=== PATIENT | male | born 1980 | race Two or more races ===

== ENCOUNTER 2021-03-26 12:23 | Emergency (ER) | payer SELFPAY ==
[~2021-03-26] VITALS: Ht 172.7 cm; Wt 86.3 kg
[2021-03-26 12:31] VITALS: BP 135/89
[2021-03-26] MEDS ORDERED: LIDOCAINE 1% Multi-Dose 20 ML VIAL. ONE (12:52)
--- NOTE | 2021-03-26 13:20 | PHYS DOC ---
Past Medical History Past Surgical History: No Surgical History General Adult EDM: Chief Complaint: KNEE SWELLING HPI: HPI: Patient is a 40 year old male who presents with out pertinent past medical history presents with a week of right knee swelling. 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 He does typically use kneepads. Does not remember any specific trauma. He had a big swollen area just inferior to his patella. His whole leg swelled up and became red. He states that the swelling has actually improved but has not gone away. Denies any fevers, chills, nausea, vomiting or other systemic symptoms. He does have pain once he gets past 90 degrees with range of motion, but no pain with a lesser degree of range of motion at the knee. Review of Systems: Review of Systems: Constitutional: Denies fever or chills. [] Eyes: Denies change in visual acuity. [] HENT: Denies nasal congestion or sore throat. [] Respiratory: Denies cough or shortness of breath. [] Cardiovascular: Denies chest pain or edema. [] GI: Denies abdominal pain, nausea, vomiting, bloody stools or diarrhea. [] : Denies dysuria. [] Musculoskeletal: Right knee pain,. [] Integument: Right knee swelling and redness [] Neurologic: Denies headache, focal weakness or sensory changes. [] Endocrine: Denies polyuria or polydipsia. [] Lymphatic: Denies swollen glands. [] Psychiatric: Denies depression or anxiety. [] Heart Score: C/O Chest Pain: No Risk Factors: Risk Factors: DM, Current or recent (<one month) smoker, HTN, HLP, family history of CAD, obesity. Risk Scores: Score 0 - 3: 2.5% MACE over next 6 weeks - Discharge Home Score 4 - 6: 20.3% MACE over next 6 weeks - Admit for Clinical Observation Score 7 - 10: 72.7% MACE over next 6 weeks - Early Invasive Strategies Current Medications: Current Medications Medications (Trade) Dose Ordered Sig/Daphne Start Time Stop Time Status Last Admin Dose Admin Lidocaine HCl (Lidocaine 1% 20ml Vial) 20 ml STK-MED ONCE 03/26/21 12:52 03/26/21 12:53 DC Allergies: Allergies: Allergies Coded Allergies Type Severity Reaction Last Updated Verified No Known Drug Allergies 03/26/21 No Physical Exam: PE: Constitutional: Well developed, well nourished, no acute distress, non-toxic appearance. [] HENT: Normocephalic, atraumatic, bilateral external ears normal, oropharynx moist, no oral exudates, nose normal. [] Eyes: conjunctiva normal, no discharge. [] Neck: Normal range of motion, no tenderness, supple, no stridor. [] Cardiovascular:Heart rate regular rhythm, no murmur [] Lungs & Thorax: Bilateral breath sounds clear to auscultation [] Skin: Spreading erythema just inferior to the knee. Erythematous skin is slightly tender to the touch. It is warm to the touch as well.. [] Back: No tenderness, no CVA tenderness. [] Extremities: Right knee with a fluctuant warm, and erythematous area just inferior to the patella. Painless range of motion to 90 degrees, then begins to be painful. [] Neurologic: Alert and oriented X 3, normal motor function, normal sensory function, no focal deficits noted. [] Psychologic: Affect normal, judgement normal, mood normal. [] Current Patient Data: Vital Signs: Vital Signs Date Time Temp Pulse Resp B/P (MAP) Pulse Ox O2 Delivery O2 Flow Rate FiO2 03/26/21 12:31 98.3 95 18 135/89 (104) 98 Room Air 98.3 EKG: EKG: [] Radiology/Procedures: Radiology/Procedures: [id number] ultrasound shows a well-circumscribed fluid collection in the area of the prepatellar bursa. There is no evidence of knee effusion on [id number] ultrasound. [] Impression: Indication: Septic prepatellar bursitis Procedure: The patient was positioned appropriately. Local anesthesia with 1% lidocaine was injected with a wheal. 2 attempts at aspiration were completed. The second attempt was under active ultrasound guidance with ultimate success. 3 cc of purulent material where aspirated with an 18-gauge needle. The needle was removed and a bandage was applied. An Ronald wrap was applied over the bursa afterwards. The patient tolerated the procedure well. Complications: none. Course & Med Decision Making: Course & Med Decision Making Pertinent Labs and Imaging studies reviewed. 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 The bursa was aspirated and returned purulent material. We will send for cu lture. He is well-appearing and afebrile without symptoms of systemic infection. I feel that he can be safely managed as an outpatient. Will prescribe Augmentin. He does not currently have a PCP, I have referred him to call her PCP office to establish. I explained strict return precautions, the patient voiced understanding. [id number] Fidencio Disclaimer: Fidencio Disclaimer: This electronic medical record was generated, in whole or in part, using a voice recognition dictation system. Departure Departure Impression: Primary Impression: Septic prepatellar bursitis Disposition: HOME / SELF CARE / HOMELESS Condition: STABLE Referrals: NON,STAFF (PCP) Additional Instructions: You have what is called septic bursitis of your prepatellar bursa. This is an infection. We are treating you with an antibiotic, Augmentin, please take the entire prescription. If you develop fever, chills, vomiting, worsening pain and redness, or pain with minimal range of motion of your knee please return to the emergency department immediately for reevaluation. Since you do not have a PCP, please call the number for the [facility] at [phone]. Scripts Amoxicillin/Potassium Clav (AUGMENTIN [id number] TABLET) 1 Each Tablet 1 TAB PO BID for 10 Days, #20 TAB 0 Refills Prov: YUAN WOODS MD 03/26/21 YUAN WOODS MD Mar 26, 2021 13:20
[2021-03-26] MEDS ORDERED: AMOX1TAB61 PO (13:23)
[2021-03-26] MEDS ORDERED: LIDOCAINE 1% Multi-Dose 20 ML VIAL. INJ ONE (13:30)
[2021-03-26 14:33] LABS: BF COLOR RED; BF SOURCE SYNOVIAL
[2021-03-26 14:34] LABS: BF CLARITY TURBID
[2021-03-26 14:35] LABS: BF MON % 1 %; BF PMN % 99 %; BF RBC COUNT 70000 /cmm (Not Established); BF WBC COUNT 430000 /cmm (Not Established)
== END 2021-03-26 13:38 | disposition home or self-care (01) ==
LOC: ER 12:23
DX: M70.41 Prepatellar bursitis, right knee (principal)
CPT/HCPCS: 20610; 87071; 87075; 89050; 99284; J3490